=== PATIENT | female | born 1995 | race Two or more races ===

== ENCOUNTER 2024-06-14 14:15 | Emergency (ER) | payer OTHER, SELFPAY ==
[2024-06-14 14:25] VITALS: BP 145/89; PULSE 84; TEMP 37; O2SAT 98; BMI 28.3
--- NOTE | 2024-06-14 15:21 | PC.NURSE ---
no redness, swelling or bruising and skin intact to bilat knees, bilat elbows and stomach area.
--- NOTE | 2024-06-14 15:33 | ED_ITS ---
HPI HPI - Fall General Chief Complaint: Fall Stated Complaint: FALL AT WORK Time Seen by Provider: 06/14/24 15:20 Source: patient Mode of arrival: walk-in History of Present Illness HPI Narrative: The patient is coming to the ER with bilateral elbow and knee pain that started just within the last hour when she fell at work, she was walking at work when she tripped over a loose and she fell on her elbow and her knee bilaterally she was able to walk in here with no difficulty she is complaining of very mild pain She mentioned that that she come here just because it is a work injury Related Data Allergies Allergy/AdvReac Type Severity Reaction Status Date / Time No Known Drug Allergies Allergy Verified 06/14/24 14:28 Opioid HPI Opioid Management Most Recent Pain and Opioid Data: No Data to Display Review of Systems ROS Status of ROS 10 or more systems reviewed and unremark able except as noted in history and below PFSH PFSH Social History Little interest or pleasure in doing things: not at all Feeling down, depressed, or hopeless: not at all Exam Narrative Exam Narrative: Nurses notes and vital signs reviewed and patient is not hypoxic. General: Well-appearing and in no apparent distress. Skin: Warm, dry, no pallor noted. No rash. Head: Normocephalic, atraumatic. Neck: Supple, non-tender. Eye: Pupils are equal, round and EOMI. No scleral icterus. Ears, Nose, Mouth, and Throat: TM are clear, no nasal mucosal hypertrophy. Oral mucosa is moist, no posterior oropharynx erythema, uvula is mid-line Cardiovascular: Regular Rate and Rhythm without murmur, gallop or rub. Respiratory: No accessory muscle use or respiratory distress. Lungs are clear to auscultation, no wheezing, rales or rhonchi Chest Wall: no tenderness Back: No midline thoracic or lumbar vertebral tenderness. No CVA tenderness Musculoskeletal: normal ROM, no calf or popliteal tenderness, very mild contusion to the posterior aspect of both elbows as well as the anterior aspect of both knees but there is no tenderness on palpation GI: Abdomen is soft, non-distended. Normal bowel sounds. No masses appreciated. No tenderness to palpation. No rebound, guarding, or rigidity noted. Neurological: A&O x4. No cranial nerve dysfunction observed. No truncal ataxia. Moves all extremities. Sensation intact. Psychiatric: Cooperative and interactive. Normal mood and affect. Constitutional Vital Signs, click to edit/add: Last Vital Signs Temp 98.6 F 06/14/24 14:25 Pulse 84 06/14/24 14:25 Resp 16 06/14/24 14:25 BP 145/89 H 06/14/24 14:25 Pulse Ox 98 06/14/24 14:25 O2 Del Method Room Air 06/14/24 14:25 Course Vital Signs Vital signs: Vital Signs Temperature 98.6 F 06/14/24 14:25 Pulse Rate 84 06/14/24 14:25 Respiratory Rate 16 06/14/24 14:25 Blood Pressure 145/89 H 06/14/24 14:25 Pulse Oximetry 98 06/14/24 14:25 Oxygen Delivery Method Room Air 06/14/24 14:25 Temperature 98.6 F 06/14/24 14:25 Pulse Rate 84 06/14/24 14:25 Respiratory Rate 16 06/14/24 14:25 Blood Pressure 145/89 H 06/14/24 14:25 Pulse Oximetry 98 06/14/24 14:25 Oxygen Delivery Method Room Air 06/14/24 14:25 MDM - Fall MDM Narrative Medical decision making narrative: The patient is coming to us with a fall and causing her mild contusion to both bilateral knees and elbows the patient was discharged with supportive care She is to follow up with occupational health as well as outpatient and she is cleared to go back to work Discharge Plan Discharge Chief Complaint: Fall Clinical Impression: Fall, Contusion Patient Disposition: Home, Self-Care Time of Disposition Decision: 15:34 Condition: Good Mode of Transportation: Private Vehicle Print Language: Chinese Instructions: Fall Prevention (ED) Referrals: Physician,Non-Staff, MD [Primary Care Provider] - 1 week
== END 2024-06-14 15:42 | disposition home or self-care (01) ==
PROVIDERS: Emergency Provider Emergency Medicine
DX: S80.02XA Contusion of left knee, initial encounter (principal); S80.01XA Contusion of right knee, initial encounter; S50.02XA Contusion of left elbow, initial encounter; S50.01XA Contusion of right elbow, initial encounter; W01.0XXA Fall on same level from slipping, tripping and stumbling without subsequent striking against object, initial encounter
CPT/HCPCS: 99281